=== PATIENT | male | born 1970 | race Caucasian/White ===

== ENCOUNTER 2016-10-13 04:38 | Emergency (ER) | payer OTHER | END 2016-10-13 05:40 | disposition home or self-care (01) | LOC: D.ER 04:38 | DX: S61.212A Laceration without foreign body of right middle finger without damage to nail, initial encounter (principal); W29.8XXA Contact with other powered hand tools and household machinery, initial encounter; Y93.89 Activity, other specified; Y92.89 Other specified places as the place of occurrence of the external cause; F17.200 Nicotine dependence, unspecified, uncomplicated ==

== ENCOUNTER 2017-04-26 07:47 | Observation (INO) | payer OTHER ==
[2017-04-26 08:43] LABS: APPEARANCE HAZY (CLEAR); BACTERIA MODERATE /hpf (NONE SEEN); BILIRUBIN NEGATIVE (NEGATIVE); COLOR YELLOW (YELLOW); EPITHELIAL CELLS 0-5 /hpf (0-5); GLUCOSE NEGATIVE (NEGATIVE); KETONE NEGATIVE (NEGATIVE); MUCUS <1+ /lpf (NONE SEEN); NITRITE NEGATIVE (NEGATIVE); PROTEIN NEGATIVE (NEGATIVE); RED CELLS - URINE 0-5 /hpf (0-5); SPECIFIC GRAVITY 1.025 (1.005-1.020); UROBILINOGEN NORMAL (NORMAL)
[2017-04-26 10:46] LABS: BASOPHILS 0.1 % (0-2); HEMATOCRIT 41.6 % (42.0-54.0); HEMOGLOBIN 14.4 g/dL (13.5-17.5); IMMATURE GRANULOCYTES 0.1 % (0-5); LYMPHOCYTES 16.8 % (15-50); MCH 33.6 pg (26.0-34.0); MCHC 34.6 g/dL (31.0-37.0); MEAN PLATELET VOLUME 9.6 fL (7.4-10.4); PLATELET COUNT 191 10x3/uL (130-400); RBC 4.29 10x6/uL (4.20-6.10); WBC 8.1 10x3/uL (4.8-10.8)
[2017-04-26 11:05] LABS: ALBUMIN 2.8 g/dL (3.4-5.0); ALKALINE PHOSPHATASE 89 U/L (46-116); ALT (SGPT) 28 U/L (10-68); BILIRUBIN - TOTAL 0.18 mg/dL (0.2-1.3); CALC OSMOLALITY 271 mosm/kg (275-300); CALCIUM 8.9 mg/dL (8.5-10.1); CARBON DIOXIDE 29.7 mmol/L (21.0-32.0); CHLORIDE - SERUM 102 mmol/L (98-107); CREATININE - SERUM 0.7 mg/dL (0.6-1.3); GLUCOSE 123 mg/dL (74-106); POTASSIUM - SERUM 3.7 mmol/L (3.5-5.1); PROTEIN - SERUM 7.3 g/dL (6.4-8.2); SODIUM 136 mmol/L (136-145); UREA NITROGEN 10 mg/dL (7-18); eGFR NON AFRICAN AMERICAN > 90 mL/min (90-120)
--- NOTE | 2017-04-26 19:30 | NUR ---
REC'D LYING IN BED A 46 Y/O W/M PER SERVICES DR. CHIRINOS. DX SCROTAL ABSCESS. SALINE LOCK PATENT RT AC. SITE CLEAR. GIRLFRIEND AT BEDSIDE. NPO AT THIS TIME FOR POSSIBLE SURGERY. ASSESSMENT PER ADMIT PACKET.
[2017-04-26 20:00] VITALS: BP 119/77
[2017-04-26 20:42] VITALS: BP 99/68; BMI 25.8
--- NOTE | 2017-04-26 21:30 | NUR ---
FOUND OUT FROM SURGERY THAT PROCEDURE WILL WILL DONE IN AM NOT TONIGHT CAN FEED PATIENT. GIRLFRIEND WENT TO GET PATIENT SOME FOOD FROM [facility] [employer]
--- NOTE | 2017-04-27 | NUR ---
NPO FOR SURGERY IN AM.
--- NOTE | 2017-04-27 03:00 | NUR ---
BOTH GIRLFRIEND AND PATIENT SLEEPING.
--- NOTE | 2017-04-27 06:39 | NUR ---
REMAINS NPO FOR SURGERY IN BATHROOM FOR [facility].
[2017-04-27 08:34] VITALS: BP 114/72
[2017-04-27] MEDS ORDERED: LEVAQUIN500 MG PO (09:00)
--- NOTE | 2017-04-27 09:05 | NUR ---
DISCHARGE INSTRUCTIONS GIVEN AND PT DISCHARGED TO HOME.
== END 2017-04-27 09:56 | disposition home or self-care (01) ==
LOC: D.ER 07:47 → OBSVTIME 17:06 → D.MS 17:06
PROVIDERS: Family Medicine; ADMIT Urology
DX: N49.2 Inflammatory disorders of scrotum (principal); N45.3 Epididymo-orchitis; F17.200 Nicotine dependence, unspecified, uncomplicated